=== PATIENT | female | born 1935 | race Caucasian/White ===

== ENCOUNTER 2019-08-21 10:54 | Emergency (ER) | payer MEDICARE, MEDICAID ==
[~2019-08-21] VITALS: Ht 157.5 cm; Wt 54.5 kg
[2019-08-21 10:59] VITALS: Ht 157.5 cm; Wt 54.5 kg
[2019-08-21] MEDS ORDERED: PROTONIX20 MG PO (11:02)
[2019-08-21] MEDS ORDERED: PLAVIX75 MG PO (11:02)
[2019-08-21] MEDS ORDERED: COREG 3.1253.125 MG PO (11:02)
[2019-08-21] MEDS ORDERED: ZYRTEC10 MG PO (11:03)
[2019-08-21] MEDS ORDERED: CATAPRES0.1 MG (11:03)
[2019-08-21 12:09] LABS: BASOPHILS 0.4 % (0-2); EOSINOPHILS 0.8 % (0-7); HEMATOCRIT 34.3 % (36.0-48.0); HEMOGLOBIN 11.1 g/dL (12-16); MCH 33.4 pg (26.0-34.0); MCHC 32.4 g/dL (31.0-37.0); MCV 103.3 fL (80.0-100.0); MONOCYTES 11.3 % (2-11); NEUTROPHILS 66.5 % (40-80); PLATELET COUNT 161 10x3/uL (130-400); RBC 3.32 10x6/uL (4.00-5.40); RDW 13.9 % (11.5-14.5); WBC 4.8 10x3/uL (4.8-10.8)
[2019-08-21 12:15] LABS: APTT 29.7 SECONDS (22.8-39.4); CALC OSMOLALITY 277 mosm/kg (275-300); CARBON DIOXIDE 29.2 mmol/L (21.0-32.0); CHLORIDE - SERUM 103 mmol/L (98-107); CREATININE - SERUM 0.6 mg/dL (0.6-1.3); GLUCOSE 103 mg/dL (74-106); INR 1.17 (0.85-1.17); POTASSIUM - SERUM 3.5 mmol/L (3.5-5.1); PROTIME 14.4 SECONDS (11.6-15.0); SODIUM 140 mmol/L (136-145); UREA NITROGEN 9 mg/dL (7-18); eGFR NON AFRICAN AMERICAN > 90 mL/min (90-120)
[2019-08-21 12:32] LABS: ALBUMIN 4.1 g/dL (3.4-5.0); ALKALINE PHOSPHATASE 64 U/L (46-116); ALT (SGPT) 16 U/L (10-68); BILIRUBIN - TOTAL 0.64 mg/dL (0.2-1.3); CKMB 0.7 U/L (0.0-3.6); CREATINE KINASE 74 UL (21-215); MAGNESIUM - SERUM 1.9 mg/dL (1.8-2.4); PROTEIN - SERUM 7.6 g/dL (6.4-8.2); TROPONIN-I < 0.017 ng/mL (0.000-0.060)
[2019-08-21] MEDS ORDERED: NORVASC5 MG PO (13:06)
[2019-08-21 13:18] VITALS: BP 135/59
== END 2019-08-21 13:51 | disposition home or self-care (01) ==
LOC: D.ER 10:54
PROVIDERS: Emergency Medicine
DX: I10 Essential (primary) hypertension (principal)